=== PATIENT | female | born 1995 | race Two or more races ===

== ENCOUNTER 2016-06-27 12:34 | Emergency (ER) | payer OTHER ==
[~2016-06-27] VITALS: Ht 165.1 cm; Wt 84.4 kg
[2016-06-27 13:16] LABS: HEMATOCRIT 40.7 % (36.0-46.0); MCH 31.5 PG (29.0-34.0); MCHC 34.6 G/DL (30.0-36.0); MCV 90.8 FL (83-99); MEAN PLAT.VOLUME 10.7 uM^3 (9.5-12.4); PLATELET COUNT 204 K/uL (156-360); RBC DIS.WIDTH-CV 13.2 % (11.8-14.6); RED BLOOD COUNT 4.48 M/uL (3.80-5.20); WHITE BLOOD COUNT 5.8 K/uL (4.1-10.2)
[2016-06-27 13:22] LABS: CHLORIDE 104 mEq/L (99-109); POTASSIUM 3.9 mEq/L (3.7-5.4); SODIUM 139 mEq/L (136-147)
[2016-06-27 13:23] LABS: GLUCOSE 98 mg/dL (70-99)
[2016-06-27 13:25] LABS: ANION GAP 13 MEQ/L (2-14)
[2016-06-27 13:26] LABS: ADD MIUA? YES; BILIRUBIN NEGATIVE; BLOOD NEGATIVE; COLOR YELLOW ((YELLOW)); GLUCOSE (STRIP) NEGATIVE; KETONES TRACE; LEUKOCYTES NEGATIVE; NITRITE NEGATIVE; PH, URINE 6.5 (5-8); PROTEIN (STRIP) TRACE; SPECIFIC GRAVITY 1.021 (1.000-1.030)
[2016-06-27 13:28] LABS: GFR ESTIMATE (CALCULATED) > 59 mL/min/; UREA NITROGEN (BUN) 7 mg/dL (9-23)
[2016-06-27 13:45] LABS: BACTERIA 2+; CASTS NONE SEEN /LPF; CRYSTALS PRESENT; PATHOLOGICAL CAST NONE SEEN; RED BLOOD CELLS 0-5 /HPF (0-5); SMALL ROUND CELL NONE SEEN; UCUL ADDED? NO; WHITE BLOOD CELLS 0-5 /HPF (0-5); YEAST-LIKE CELL NONE SEEN
[2016-06-27 13:58] LABS: EPITHELIAL CELLS 4+; MUCUS 1+
[2016-06-27 13:59] LABS: AMORPHOUS URATES CRYSTALS 1+
[2016-06-27] MEDS ORDERED: ZOFRAN ODT4 MG PO (14:59)
[2016-06-27] MEDS ORDERED: TESSALON200 MG PO (14:59)
[2016-06-27 15:16] VITALS: BP 129/65
== END 2016-06-27 15:16 | disposition home or self-care (01) ==
LOC: EME 12:34
DX: J06.9 Acute upper respiratory infection, unspecified (principal); R11.2 Nausea with vomiting, unspecified
CPT/HCPCS: 80048; 81003; 85027; 99281; 99284